=== PATIENT | female | born 1980 | race Caucasian/White ===

== ENCOUNTER 2020-10-12 20:28 | Emergency (ER) | payer OTHER ==
[~2020-10-12 20:28] MED LIST: BACTRIM DS TAB1 EACH PO; CIPRO500 MG PO; CYCLOBENZAPRINE10 MG PO; FLEXERIL10 MG PO; IBUPROFEN800 MG PO; MEDROL 4MG DOSEP4 MG PO; METRONIDAZOLE500 MG PO; NORCO 5-325 TA1 EACH PO; VOLTAREN **OUT50 MG PO
[2020-10-12] MEDS ORDERED: MIRALAX 238GM238 GM PO (21:07)
== END 2020-10-12 21:15 | disposition home or self-care (01) ==
LOC: FER 20:28
DX: K59.00 Constipation, unspecified (principal); R11.0 Nausea; F17.200 Nicotine dependence, unspecified, uncomplicated; Z88.1 Allergy status to other antibiotic agents
CPT/HCPCS: 99283

== ENCOUNTER 2020-10-16 15:13 | Emergency (ER) | payer OTHER ==
[~2020-10-16 15:13] MED LIST changes: +MIRALAX 238GM238 GM PO
[2020-10-16 15:49] LABS: BASOPHIL 0.2 % (0-2); HCT 42.4 % (37.0-47.0); HGB 14.5 g/dl (12.5-16.0); LYMPHOCYTE 16.2 % (15-48); MCH 33.2 pg (25.0-31.0); MCHC 34.2 g/dL (32.0-36.0); MONOCYTE 8.6 % (0-12); MPV 10.3 fL (6.0-9.5); NEUTROPHIL 73.6 % (41-80); NRBC 0; PLT 319 K/uL (150-400); RBC 4.37 M/uL (4.20-5.40); RDW 11.6 % (11.5-14.0)
[2020-10-16 16:26] LABS: BILIRUBIN - TOTAL 0.4 mg/dL (0.2-1.0); BUN/CREAT RATIO (CALC) 21.7 RATIO; CREATININE 0.69 mg/dL (0.51-0.95); GLOBULIN (CALCULATION) 4.4 g/dL; POTASSIUM 3.6 mmol/L (3.5-5.1); TOTAL PROTEIN 8.4 g/dL (6.4-8.2)
[2020-10-16] MEDS ORDERED: ZOFRAN4 M1 SL (16:56)
[2020-10-16] MEDS ORDERED: PRILOSEC20 MG PO (16:56)
[2020-10-16] MEDS ORDERED: CARAFATE1 GM PO (16:56)
== END 2020-10-16 17:31 | disposition home or self-care (01) ==
LOC: FER 15:13
PROVIDERS: Nurse Practitioner
DX: R10.11 Right upper quadrant pain (principal); R10.13 Epigastric pain; R11.2 Nausea with vomiting, unspecified; R63.0 Anorexia; F17.210 Nicotine dependence, cigarettes, uncomplicated; Z98.51 Tubal ligation status; Z88.1 Allergy status to other antibiotic agents
CPT/HCPCS: 36415; 76705; 80053; 82150; 83690; 85025; C9113; J2270; J2405; J7030

== ENCOUNTER 2021-02-21 21:42 | Emergency (ER) | payer OTHER ==
[~2021-02-21 21:42] MED LIST changes: +CARAFATE1 GM PO; +PRILOSEC20 MG PO; +ZOFRAN4 M1 SL
[2021-02-21 23:35] LABS: BASOPHIL 0.5 % (0-2); EOSINOPHIL 1.5 % (0-5); HCT 42.1 % (37.0-47.0); HGB 14.3 g/dl (12.5-16.0); LYMPHOCYTE 28.2 % (15-48); MCH 32.6 pg (25.0-31.0); MCV 96.1 fL (78.0-100.0); MONOCYTE 7.1 % (0-12); MPV 10.5 fL (6.0-9.5); NEUTROPHIL 62.3 % (41-80); NRBC 0; PLT 244 K/uL (150-400); RBC 4.38 M/uL (4.20-5.40); RDW 11.8 % (11.5-14.0); WBC 8.5 K/uL (4.0-10.5)
[2021-02-21 23:50] LABS: BUN/CREAT RATIO (CALC) 23.3 RATIO; CREATININE 0.6 mg/dL (0.51-0.95)
[2021-02-22] MEDS ORDERED: CYCLOBENZAPRINE10 MG PO (00:20)
[2021-02-22] MEDS ORDERED: PERCOCET 5-3251 EACH PO (00:20)
[2021-02-22] MEDS ORDERED: MEDROL 4MG DOSEP4 MG PO (00:20)
[2021-02-22] MEDS ORDERED: IBUPROFEN800 MG PO (00:20)
== END 2021-02-22 00:56 | disposition home or self-care (01) ==
LOC: FER 21:42
PROVIDERS: Nurse Practitioner Family
DX: R07.89 Other chest pain (principal); Z88.1 Allergy status to other antibiotic agents
CPT/HCPCS: 36415; 71045; 80048; 84484; 85025; 85379; 93005; 96372; J1100; J1885

== ENCOUNTER 2021-03-04 00:14 | Emergency (ER) | payer OTHER ==
[~2021-03-04 00:14] MED LIST changes: +PERCOCET 5-3251 EACH PO
[2021-03-04 01:36] LABS: BASOPHIL 0.4 % (0-2); EOSINOPHIL 0.5 % (0-5); HCT 43.5 % (37.0-47.0); HGB 14.5 g/dl (12.5-16.0); LYMPHOCYTE 23.3 % (15-48); MCH 32.2 pg (25.0-31.0); MCHC 33.3 g/dL (32.0-36.0); MCV 96.5 fL (78.0-100.0); MONOCYTE 6.8 % (0-12); NEUTROPHIL 68.7 % (41-80); NRBC 0; PLT 289 K/uL (150-400); RBC 4.51 M/uL (4.20-5.40); RDW 11.3 % (11.5-14.0)
[2021-03-04 01:54] LABS: ALBUMIN 3.9 g/dL (3.4-5.0); BILIRUBIN - TOTAL 0.2 mg/dL (0.2-1.0); BUN/CREAT RATIO (CALC) 36.1 RATIO; CREATININE 0.72 mg/dL (0.51-0.95); GLOBULIN (CALCULATION) 3.6 g/dL; TOTAL PROTEIN 7.5 g/dL (6.4-8.2)
== END 2021-03-04 04:02 | disposition home or self-care (01) ==
LOC: FER 00:14
PROVIDERS: Emergency Medicine
DX: M94.0 Chondrocostal junction syndrome [Tietze] (principal); Z88.1 Allergy status to other antibiotic agents
CPT/HCPCS: 36415; 71275; 80053; 84484; 85025; 85379; 93005; J1885; J7030; Q9967

== ENCOUNTER 2021-03-20 18:50 | Emergency (ER) | payer OTHER ==
[2021-03-21 02:13] LABS: BASOPHIL 0.5 % (0-2); EOSINOPHIL 1.2 % (0-5); HCT 48.6 % (37.0-47.0); LYMPHOCYTE 33.6 % (15-48); MCH 31.6 pg (25.0-31.0); MCHC 32.9 g/dL (32.0-36.0); MONOCYTE 6.9 % (0-12); NEUTROPHIL 57.5 % (41-80); NRBC 0; PLT 256 K/uL (150-400); RBC 5.06 M/uL (4.20-5.40); WBC 8.8 K/uL (4.0-10.5)
[2021-03-21 02:23] LABS: BILIRUBIN - TOTAL 0.3 mg/dL (0.2-1.0); CREATININE 0.74 mg/dL (0.51-0.95); GLOBULIN (CALCULATION) 4.6 g/dL; POTASSIUM 4.1 mmol/L (3.5-5.1); TOTAL PROTEIN 8.6 g/dL (6.4-8.2)
== END 2021-03-21 01:25 | disposition home or self-care (01) ==
LOC: FER 18:50
PROVIDERS: Emergency Medicine
DX: U07.1 COVID-19 (principal); R07.89 Other chest pain; F17.200 Nicotine dependence, unspecified, uncomplicated; Z88.1 Allergy status to other antibiotic agents
CPT/HCPCS: 36415; 71045; 80053; 84484; 85025; 93005; J1885; U0002